=== PATIENT | female | born 1955 | race Caucasian/White ===

== ENCOUNTER 2022-08-06 07:31 | Outpatient (CLI) | payer MEDICARE, SELFPAY ==
--- NOTE | ~2022-08-06 | MM_ITS ---
EXAMINATION: MM screening yogesh BI w kacie HISTORY: Screening TECHNIQUE: Craniocaudal and mediolateral oblique 3-D tomosynthesis images were obtained and synthetic 2-D images were generated. CAD analysis was submitted and interpreted. COMPARISON: Comparison to multiple prior studies sequentially, with oldest reviewed study dated 02/08. BREAST PARENCHYMAL COMPOSITION: The breasts are heterogeneously dense, which may obscure small masses . FINDINGS: There are stable bilateral nodular asymmetries in both breasts. There are benign breast osmani cifications. There is no evidence of suspicious mass, calcification, or architectural distortion to s uggest malignancy in either breast. There has been no suspicious interval change. IMPRESSION: 1. No mammographic evidence of malignancy. 2. Recommend routine screening mammography in one year. BI-RADS Category 1: Negative Reviewed, dictated and finalized at location A.
--- NOTE | ~2022-08-06 | DEXA_ITS ---
Bone Density Report Name: AYDE SWENSON Age: 66 Sex: Female Ethnicity: White Date of : 1955 Indication: postmenopausal; screening for osteoporosis; asthma or emphysema; Referring Provider: BISI, TEOFILO Study: Bone densitometry was performed. Exam Date: August 06, 2022 Accession number: [id number] Bone Density: Region BMD T-score Z-score Classification AP Spine(L1-L4) 1.080 0.3 2.2 Normal Femoral Neck (Left) 0.863 0.1 1.7 Normal Total Hip (Left) 1.017 0.6 1.9 Normal Femoral Neck (Right) 0.820 -0.3 1.3 Normal Total Hip (Right) 0.960 0.1 1.5 Normal Total Hip Mean 0.989 0.4 1.7 Normal World Health Organization criteria for BMD impression classify patients as: Normal (T-score at or above -1.0), Osteopenia (T-score between -1.0 and -2.5), or Osteoporosis (T-score at or below -2.5). 10-year Fracture Risk: FRAX not reported because: All T-scores for Spine Total, Hip Total, Femoral Neck at or above -1.0 Previous Exams: Region Exam Age BMD T-score BMD Change BMD Change Date g/cm2 vs Baseline vs Previous AP Spine (L1-L4) 08/06/2022 66 1.080 0.3 0.090 (9.1%)* 0.063 (6.2%)* 04/21/2019 63 1.017 -0.3 0.027 (2.7%)* 0.022 (2.2%) 04/16/2017 61 0.995 -0.5 0.005 (0.5%) 0.005 (0.5%) 02/08/2015 59 0.990 -0.5 Total Hip(Left) 08/06/2022 66 1.017 0.6 -0.029 (-2.7%) -0.054 (-5.1%) 04/21/2019 63 1.072 1.1 0.026 (2.5%) 0.016 (1.5%) 04/16/2017 61 1.056 0.9 0.010 (1.0%) 0.010 (1.0%) 02/08/2015 59 1.046 0.9 Total Hip(Right) 08/06/2022 66 0.960 0.1 -0.021 (-2.1%) -0.038 (-3.8%) 04/21/2019 63 0.998 0.5 0.017 (1.7%) 0.000 (0.0%) 04/16/2017 61 0.998 0.5 0.017 (1.7%) 0.017 (1.7%) 02/08/2015 59 0.980 0.3 *Denotes significance at 95% confidence level, LSC for AP Spine = 0.022 g/cm2, LSC for Total Hip = 0.027 g/cm2 Clinical Information Provided by Patient: Smokes Has used the following medications: Vitamin D Has the following medical conditions: Asthma or Emphysema Patient maximum height was 62 Menopause Age: 50 No regular weight bearing exercise Drinks caffeinated beverages Onset of menses at age 12 Number of children 1 Impression: The patient has normal bone mass. The patient has risk factors, including: smoking. The BMD for the Total Hip(Left) decreased, changing by -5.1% since the last DXA exam. The BMD for the Total Hip(Right) d
== END 2022-08-06 07:32 | disposition home or self-care (01) ==
PROVIDERS: Visit Provider Family Medicine
DX: Z12.31 Encounter for screening mammogram for malignant neoplasm of breast (principal); Z78.0 Asymptomatic menopausal state
CPT/HCPCS: 77063; 77067; 77080

== ENCOUNTER 2024-03-09 10:07 | Outpatient (CLI) | payer MEDICARE, SELFPAY ==
--- NOTE | ~2024-03-09 | MM_ITS ---
EXAMINATION: MM screening yogesh BI w kacie HISTORY: Screening mammogram TECHNIQUE: Craniocaudal and mediolateral oblique 3-D tomosynthesis images were obtained and synthetic 2-D images were generated. CAD analysis was submitted and interpreted. COMPARISON: 08/06/2022, 04/21/2019 bilateral screening mammogram examinations BREAST PARENCHYMAL COMPOSITION: The breasts are heterogeneously dense, which may obscure small masses . FINDINGS: Scattered bilateral benign calcifications. There is no evidence of suspicious mass, calcifi cation, or architectural distortion to suggest malignancy in either breast. There has been no suspici ous interval change. IMPRESSION: 1. No mammographic evidence of malignancy. 2. Recommend routine screening mammography in one year. BI-RADS Category 2: Benign finding(s). Reviewed, dictated and finalized at location B.
== END 2024-03-09 10:08 | disposition home or self-care (01) ==
PROVIDERS: PCP Family Medicine; Visit Provider Family Medicine
DX: Z12.31 Encounter for screening mammogram for malignant neoplasm of breast (principal)
CPT/HCPCS: 77063; 77067

== ENCOUNTER 2024-08-15 13:44 | Outpatient (CLI) | payer MEDICARE, SELFPAY ==
--- NOTE | ~2024-08-15 | DEXA_ITS ---
Bone Density Report Name: AYDE SWENSON Age: 68 Sex: Female Ethnicity: White Date of : 1955 Indication: postmenopausal; screening for osteoporosis; Referring Provider: BISI, TEOFILO Study: Bone densitometry was performed. Exam Date: August 15, 2024 Accession number: [id number] Bone Density: Region BMD T-score Z-score Classification AP Spine(L1-L4) 1.039 -0.1 1.9 Normal Femoral Neck (Left) 0.908 0.5 2.2 Normal Total Hip (Left) 1.019 0.6 2.1 Normal Femoral Neck (Right) 0.775 -0.7 1.1 Normal Total Hip (Right) 0.963 0.2 1.6 Normal Total Hip Mean 0.991 0.4 1.9 Normal World Health Organization criteria for BMD impression classify patients as: Normal (T-score at or above -1.0), Osteopenia (T-score between -1.0 and -2.5), or Osteoporosis (T-score at or below -2.5). 10-year Fracture Risk: FRAX not reported because: All T-scores for Spine Total, Hip Total, Femoral Neck at or above -1.0 Previous Exams: Region Exam Age BMD T-score BMD Change BMD Change Date g/cm2 vs Baseline vs Previous AP Spine (L1-L4) 08/15/2024 68 1.039 -0.1 0.049 (4.9%)# -0.041 (-3.8%) 08/06/2022 66 1.080 0.3 0.090 (9.1%)* 0.063 (6.2%)* 04/21/2019 63 1.017 -0.3 0.027 (2.7%)* 0.022 (2.2%) 04/16/2017 61 0.995 -0.5 0.005 (0.5%) 0.005 (0.5%) 02/08/2015 59 0.990 -0.5 Total Hip(Left) 08/15/2024 68 1.019 0.6 -0.027 (-2.6%) 0.001 (0.1%)# 08/06/2022 66 1.017 0.6 -0.029 (-2.7%) -0.054 (-5.1%) 04/21/2019 63 1.072 1.1 0.026 (2.5%) 0.016 (1.5%) 04/16/2017 61 1.056 0.9 0.010 (1.0%) 0.010 (1.0%) 02/08/2015 59 1.046 0.9 Total Hip(Right) 08/15/2024 68 0.963 0.2 -0.017 (-1.8%) 0.004 (0.4%)# 08/06/2022 66 0.960 0.1 -0.021 (-2.1%) -0.038 (-3.8%) 04/21/2019 63 0.998 0.5 0.017 (1.7%) 0.000 (0.0%) 04/16/2017 61 0.998 0.5 0.017 (1.7%) 0.017 (1.7%) 02/08/2015 59 0.980 0.3 *Denotes significance at 95% confidence level, LSC for AP Spine = 0.022 g/cm2, LSC for Total Hip = 0.027 g/cm2 # Denotes dissimilar scan types or analysis methods Clinical Information Provided by Patient: Smokes Has used the following medications: Vitamin D Patient maximum height was 62 Menopause Age: 50 No regular weight bearing exercise Drinks caffeinated beverages Onset of menses at age 12 Number of children 1 Impression: The patient has normal bone mass. The patient has risk factors, including: smoking. No significant bone loss was observed. Discussion: BONE DENSITY IS ABOVE THE MINIMUM DESIRABLE LEVEL AT ALL SKELETAL SITES TESTED. This patient?s bone mineral density is above the minimum desirable level (T-score -1.0 or better) at all sites measured. The patient should follow a healthful lifestyle (good nutrition with adequate calcium and vitamin D, and appropriate weight-bearing exercise). Follow-Up: Consider repeating this study in 5 years or sooner if there is some new clinical indication. Reported by: TORY on 08/15/2024 2:22:00 PM. Reviewed, dictated and finalized at location ARoberto SANDOVAL
== END 2024-08-15 13:45 | disposition home or self-care (01) ==
LOC: ANHIMG 13:46
PROVIDERS: PCP Family Medicine; Visit Provider Family Medicine
DX: Z13.820 Encounter for screening for osteoporosis (principal); M81.0 Age-related osteoporosis without current pathological fracture
CPT/HCPCS: 77080